=== PATIENT | female | born 1995 | race Caucasian/White ===

== ENCOUNTER 2024-05-01 12:04 | Emergency (ER) | payer MEDICAID ==
[~2024-05-01] VITALS: Ht 167.6 cm; Wt 104.5 kg
[2024-05-01] MEDS ORDERED: NEURONTIN300 MG/CAP (12:19)
[2024-05-01] MEDS ORDERED: CELEBREX 200MG200 MG PO (12:19)
[2024-05-01] MEDS ORDERED: BUTALBITAL ACE PO (12:19)
[2024-05-01] MEDS ORDERED: ZEPBOUND2.5 MG/0.5 SQ (12:20)
[2024-05-01] MEDS ORDERED: TIZANIDINE HYDRO2 M1 PO (12:20)
[2024-05-01] MEDS ORDERED: CLONAZEPAM0.5 M1 PO (12:20)
[2024-05-01] MEDS ORDERED: LEVOTHYROXIN0.075 MG PO (12:20)
[2024-05-01] MEDS ORDERED: AMBIEN5 M1 PO (12:20)
[2024-05-01] MEDS ORDERED: SAVELLA100 MG PO (12:21)
[2024-05-01] MEDS ORDERED: PROPRANOLOL HCL40 M2 PO (12:21)
[2024-05-01] MEDS ORDERED: STRATTERA80 MG PO (12:21)
[2024-05-01] MEDS ORDERED: EPIPEN 2-PAK1 MG/ML MR (12:22)
[2024-05-01] MEDS ORDERED: Promethazine 50 MG/ML 1 ML VIAL IM ONE (12:45)
[2024-05-01] MEDS ORDERED: Ketorolac 30 MG/ML VIAL IM ONE (12:45)
[2024-05-01] MEDS ORDERED: diphenhydrAMINE 50 MG/ML 1 ML VIAL IM ONE (12:45)
[2024-05-01] MEDS ORDERED: Lidocaine 4% Topical Patch TP ONE (14:15)
[2024-05-01] MEDS ORDERED: LIDOCAINE PAIN1 EACH TP (14:27)
[2024-05-01 14:35] VITALS: BP 113/63
== END 2024-05-01 14:35 | disposition home or self-care (01) ==
LOC: ED 12:04
DX: G43.909 Migraine, unspecified, not intractable, without status migrainosus (principal); M54.2 Cervicalgia
CPT/HCPCS: J1200; J1885; J2550